=== PATIENT | female | born 1995 | race Hispanic/Latino ===

== ENCOUNTER 2019-07-08 19:15 | Emergency (ER) | payer OTHER ==
[2019-07-08] MEDS ORDERED: LIDOCAINE 1%-EPI 1:100,000 20 ML VIAL IJ ONE (19:36)
[2019-07-08] MEDS ORDERED: ONDANSETRON ODT 4 MG TAB ONE (19:37)
[2019-07-08] MEDS ORDERED: HYDROCODONE/ACETAMINOPHEN 5/325 MG TAB ONE (19:37)
== END 2019-07-08 21:06 | disposition home or self-care (01) ==
LOC: EDH 19:15
DX: L02.31 Cutaneous abscess of buttock (principal); L03.317 Cellulitis of buttock
CPT/HCPCS: 10060; 81025; 87070; 87076; 87077; 87186; 99284; J3490